=== PATIENT | female | born 1990 | race Caucasian/White ===

== ENCOUNTER 2024-10-08 13:06 | Emergency (ER) | payer OTHER ==
[~2024-10-08] VITALS: Ht 195.6 cm; Wt 115.2 kg
[2024-10-08] MEDS ORDERED: FLUO40CA49 PO ×2 (13:18→13:49)
[2024-10-08] MEDS ORDERED: FLUO10CA29 PO (13:49)
[2024-10-08 14:05] VITALS: BP 126/70; O2SAT 99
== END 2024-10-08 14:10 | disposition home or self-care (01) ==
LOC: ER 13:06
DX: F32.A Depression, unspecified (principal); Z76.0 Encounter for issue of repeat prescription; Z79.899 Other long term (current) drug therapy
CPT/HCPCS: A4606; A4663